=== PATIENT | male | born 1955 | race Caucasian/White ===

== ENCOUNTER → 2023-01-06 | Outpatient (CLI) | payer MEDICARE, OTHER | END | disposition home or self-care (01) | LOC: RESCLI 13:04 | PROVIDERS: ATTEND Internal Medicine | DX: I12.9 Hypertensive chronic kidney disease with stage 1 through stage 4 chronic kidney disease, or unspecified chronic kidney disease (principal); E11.22 Type 2 diabetes mellitus with diabetic chronic kidney disease; N18.9 Chronic kidney disease, unspecified; E78.5 Hyperlipidemia, unspecified; E55.9 Vitamin D deficiency, unspecified; G47.00 Insomnia, unspecified; C61 Malignant neoplasm of prostate; Z71.89 Other specified counseling; Z90.79 Acquired absence of other genital organ(s); Z88.8 Allergy status to other drugs, medicaments and biological substances; Z98.890 Other specified postprocedural states; Z88.5 Allergy status to narcotic agent; Z79.899 Other long term (current) drug therapy ==